=== PATIENT | female | born 1990 | race Hispanic/Latino ===

== ENCOUNTER 2021-07-02 18:01 | Emergency (ER) | payer OTHER ==
[~2021-07-02] VITALS: Ht 165.1 cm; Wt 72.2 kg
[2021-07-02] MEDS ORDERED: KETOROLAC TROMETHAMINE 30 MG/ML VIAL IV STA (19:21)
[2021-07-02] MEDS ORDERED: AMLODIPINE BESYLATE 5 MG TAB PO ONE (19:30)
[2021-07-02] MEDS ORDERED: AMLODIPINE BESYLATE 5 MG TAB ONE (19:39)
[2021-07-02] MEDS ORDERED: KETOROLAC TROMETHAMINE 30 MG/ML VIAL ONE (19:40)
[2021-07-02] MEDS ORDERED: BUSPIRONE HCL5 MG PO (20:56)
== END 2021-07-02 21:20 | disposition home or self-care (01) ==
LOC: FSED 19:25
DX: I10 Essential (primary) hypertension (principal); R51.9 Headache, unspecified; F41.9 Anxiety disorder, unspecified
CPT/HCPCS: 70450; 80053; 81003; 81025; 85025; 99283; J1885